=== PATIENT | female | born 1980 | race African-American/Black ===

== ENCOUNTER 2017-04-04 16:58 | Emergency (ER) | payer MEDICAID ==
[~2017-04-04] VITALS: Ht 162.6 cm; Wt 57.0 kg
[2017-04-04] MEDS ORDERED: SODIUM CHLORIDE 0.9% 1,000 ML IV ONE (18:11)
[2017-04-04] MEDS ORDERED: ONDANSETRON HCL 4MG/2ML VIAL IV ONE (18:15)
[2017-04-04] MEDS ORDERED: MECLIZINE 25MG TABLET PO ONE (18:15)
[2017-04-04] MEDS ORDERED: DEXAMETHASONE 10 MG/ML VIAL IV ONE (18:15)
[2017-04-04 18:45] LABS: BASOPHILS % 1.1 % (0.0-2.0); EOSINOPHILS % 0.3 % (0.0-5.0); HEMATOCRIT. 39.3 % (36.0-48.0); LYMPHOCYTES % 31.6 % (20.0-50.0); MEAN CORPUSCULAR VOLUME 78.3 fL (81.0-99.0); MEAN PLATELET VOLUME 8.4 fl (7.4-10.4); MONOCYTES % 10.3 % (2.0-8.0); NEUTROPHILS % 56.7 % (40.0-76.0); PLATELET 199 x1000/uL (130-400); RED BLOOD CELL COUNT 5.01 mill/uL (4.2-5.4); RED CELL DISTRIBUTION WIDTH 14.3 % (11.6-14.6)
[2017-04-04 18:55] LABS: CARBON DIOXIDE 28 mEq/L (21-32); CHLORIDE 106 mEq/L (98-107); HCG SCREEN NEGATIVE
[2017-04-04 18:58] LABS: TROPONIN I < 0.02 ng/mL (0.00-0.04)
[2017-04-04] MEDS ORDERED: POTASSIUM CHLORIDE 20MEQ TABLET SR PO ONE (19:00)
[2017-04-04 21:25] VITALS: BP 116/79
== END 2017-04-04 21:33 | disposition home or self-care (01) ==
LOC: ER 17:14
DX: R42 Dizziness and giddiness (principal); R11.0 Nausea; F45.8 Other somatoform disorders; F41.1 Generalized anxiety disorder; E87.6 Hypokalemia; R00.2 Palpitations; Z88.6 Allergy status to analgesic agent; Z98.890 Other specified postprocedural states
CPT/HCPCS: 36415; 80048; 83735; 84484; 84703; 85025; 93005; 96361; 96374; 96375; 99285; J1100; J2405; J7030; Z7610; J8597